=== PATIENT | male | born 1990 | race Caucasian/White ===

== ENCOUNTER 2024-07-08 10:46 | Emergency (ER) | payer SELFPAY ==
[~2024-07-08] VITALS: Ht 170.2 cm; Wt 99.7 kg
[2024-07-08 10:49] VITALS: O2SAT 99
[2024-07-08 10:56] VITALS: BP 146/87; PULSE 88; RESP 18; TEMP 37; O2SAT 98
== END 2024-07-08 16:20 | disposition left against medical advice (07) ==
LOC: ER 10:55
DX: R68.89 Other general symptoms and signs (principal); Z53.21 Procedure and treatment not carried out due to patient leaving prior to being seen by health care provider